=== PATIENT | male | born 1985 | race Hispanic/Latino ===

== ENCOUNTER 2019-07-09 08:43 | Emergency (ER) | payer SELFPAY ==
[~2019-07-09] VITALS: Ht 180.3 cm; Wt 102.1 kg
[2019-07-09] MEDS ORDERED: ONDANSETRON HCL INJ 2MG/ML 2ML 2 MG/ML VIAL IV STA (08:54)
[2019-07-09] MEDS ORDERED: SODIUM CHLORIDE 0.9% 1000ML 1,000 ML IV STA ×2 (08:54)
[2019-07-09] MEDS ORDERED: MORPHINE SULFATE INJ 4 MG/ML INJ 1ML IV STA (08:54)
[2019-07-09 09:14] LABS: BASOPHILS % 0.1 % (0.0-1.0); EOSINOPHILS # (AUTO) 0.1 (0.0-0.4); EOSINOPHILS % 1.5 % (0.0-6.0); HEMATOCRIT 42.3 % (38.2-49.6); LYMPHOCYTES # (AUTO) 0.7 (1.0-3.2); LYMPHOCYTES % 9.3 % (18.0-39.1); MEAN CORPUSCULAR HEMOGLOBIN 28.6 pg (28-32); MEAN CORPUSCULAR HGB CONC 33.1 g/dL (31-35); MEAN CORPUSCULAR VOLUME 86.5 fL (81-99); MONOCYTES # (AUTO) 0.4 (0.2-0.8); MONOCYTES % 5.8 % (4.4-11.3); NEUTROPHILS # (AUTO) 6.1 (2.1-6.9); NEUTROPHILS % 82.8 % (38.7-80.0); PLATELET COUNT 220 x10e3/uL (140-360); RED BLOOD COUNT 4.89 x10e6/uL (4.3-5.7); RED CELL DISTRIBUTION WIDTH 13.5 % (11.7-14.4)
[2019-07-09 09:32] LABS: ALANINE AMINOTRANSFERASE 23 IU/L (0-55); ALBUMIN 3.2 g/dL (3.5-5.0); ALBUMIN/GLOBULIN RATIO 1.1 (0.8-2.0); ALKALINE PHOSPHATASE 62 IU/L (40-150); ANION GAP 9.5 mmol/L (8-16); BLOOD UREA NITROGEN 10 mg/dL (7-26); BUN/CREATININE RATIO 12 (6-25); CALCIUM 8.3 mg/dL (8.4-10.2); CARBON DIOXIDE 28 mmol/L (22-29); CHLORIDE 106 mmol/L (98-107); CREATININE, SERUM 0.81 mg/dL (0.72-1.25); EST GLOMERULAR FILTRATION RATE > 60 ML/MIN (60-); GLUCOSE 107 mg/dL (74-118); LIPASE 27 U/L (8-78); POTASSIUM 3.5 mmol/L (3.5-5.1); SODIUM 140 mmol/L (136-145)
== END 2019-07-09 11:01 | disposition home or self-care (01) ==
LOC: ER 08:43
DX: R11.2 Nausea with vomiting, unspecified (principal); R19.7 Diarrhea, unspecified; K50.90 Crohn's disease, unspecified, without complications
CPT/HCPCS: 36415; 80053; 83690; 85025; 99284; J2270; J2405; J7030

== ENCOUNTER 2019-11-04 19:26 | Emergency (ER) | payer OTHER ==
[~2019-11-04] VITALS: Ht 180.3 cm; Wt 102.1 kg
[2019-11-04 20:18] LABS: BASOPHILS % 0.5 % (0.0-1.0); EOSINOPHILS # (AUTO) 0.5 (0.0-0.4); EOSINOPHILS % 6.4 % (0.0-6.0); HEMATOCRIT 41.5 % (38.2-49.6); HEMOGLOBIN 13.6 g/dL (14.0-18.0); LYMPHOCYTES # (AUTO) 2.1 (1.0-3.2); LYMPHOCYTES % 28.4 % (18.0-39.1); MEAN CORPUSCULAR HEMOGLOBIN 28.9 pg (28-32); MEAN CORPUSCULAR HGB CONC 32.8 g/dL (31-35); MEAN CORPUSCULAR VOLUME 88.1 fL (81-99); MONOCYTES # (AUTO) 0.6 (0.2-0.8); MONOCYTES % 8.5 % (4.4-11.3); NEUTROPHILS # (AUTO) 4.1 (2.1-6.9); NEUTROPHILS % 55.8 % (38.7-80.0); PLATELET COUNT 310 x10e3/uL (140-360); RED BLOOD COUNT 4.71 x10e6/uL (4.3-5.7); RED CELL DISTRIBUTION WIDTH 14.1 % (11.7-14.4)
[2019-11-04 20:38] LABS: ALANINE AMINOTRANSFERASE 18 IU/L (0-55); ALBUMIN 3.8 g/dL (3.5-5.0); ALBUMIN/GLOBULIN RATIO 1.2 (0.8-2.0); ALKALINE PHOSPHATASE 68 IU/L (40-150); AMYLASE 24 U/L (25-125); ANION GAP 9.3 mmol/L (8-16); BLOOD UREA NITROGEN 16 mg/dL (7-26); BUN/CREATININE RATIO 13 (6-25); CALCIUM 9.2 mg/dL (8.4-10.2); CARBON DIOXIDE 30 mmol/L (22-29); CHLORIDE 105 mmol/L (98-107); CREATININE, SERUM 1.24 mg/dL (0.72-1.25); EST GLOMERULAR FILTRATION RATE > 60 ML/MIN (60-); GLUCOSE 83 mg/dL (74-118); LIPASE 24 U/L (8-78); POTASSIUM 4.3 mmol/L (3.5-5.1); SODIUM 140 mmol/L (136-145)
== END 2019-11-04 22:24 | disposition home or self-care (01) ==
LOC: ER 19:26
DX: R10.13 Epigastric pain (principal); K29.20 Alcoholic gastritis without bleeding
CPT/HCPCS: 36415; 80053; 82150; 83690; 85025; 99283

== ENCOUNTER 2019-12-14 17:42 | Emergency (ER) | payer OTHER ==
[~2019-12-14] VITALS: Ht 180.3 cm; Wt 102.1 kg
--- OUTSIDE RECORDS SUMMARY | 2019-12-14 17:45 | XMS REPORT ---
Author Author [facility] Address Unknown Phone Unavailable Care Team Providers Care Quarter Inspector Name Role Phone NO, PCP PP Unavailable Payers Payer Name Policy Type Policy Number Effective Date Expiration Date Miscellaneous Hmo [id number] 2019 00:00:00 Problems This patient has no known problems. Allergies, Adverse Reactions, Alerts This patient has no known allergies or adverse reactions. Medications This patient has no known medications. Encounters Start Date/Time End Date/Time Encounter Type Admission Type Attending Clinicians Care Facility Care Department Encounter ID 2019-11-04 19:26:00 2019-11-04 22:24:00 Departed Emergency Room [facility] [id number] 2019-07-09 08:43:00 2019-07-09 11:01:00 Departed Emergency Room [facility] [id number] Results Test Description Test Time Test Comments Text Results Atomic Results Result Comments Sodium Level 2019-11-04 20:43:00 Sodium Level (test cfli=2292-1) 140 136-145 Potassium Hfalc2413-51-01 20:43:00* Test Item Value Reference Range Comments Potassium Level (test mfda=0894-0) 4.3 3.5-5.1 Chloride Zzjqy7987-80-44 20:43:00* Test Item Value Reference Range Comments Chloride Level (test pyde=3036-2) 105 98-107 Carbon Dioxide Dgiow1056-67-16 20:43:00* Test Item Value Reference Range Comments Carbon Dioxide Level (test txvo=7266-9) 30 22-29 Anion Jvs9666-86-05 20:43:00* Test Item Value Reference Range Comments Anion Gap (test qrcp=96207-9) 9.3 8-16 Blood Urea Sddujhxu5168-18-24 20:43:00* Test Item Value Reference Range Comments Blood Urea Nitrogen (test gvkn=7216-3) 16 7-26 Prvdsguwdq2408-75-32 20:43:00* Test Item Value Reference Range Comments Creatinine (test xrzx=9039-7) 1.24 0.72-1.25 BUN/Creatinine Xzmik4095-54-05 20:43:00* Test Item Value Reference Range Comments BUN/Creatinine Ratio (test zwfy=7518-9) 13 6-25 Estimat Glomerular Filtration Ndqv0559-85-55 20:43:00* Test Item Value Reference Range Comments Estimat Glomerular Filtration Rate (test ywio=817037180) > 60 >60 Ranges were taken from the National Kidney Disease Education Program and the [facility] Kidney Foundation literature.Reference ranges:60 or greater: Nyeavg71-11 ( for 3 consecutive months): Chronic kidney disease 15 or less: Kidney failure Glucose Zcnwi1610-19-46 20:43:00* Test Item Value Reference Range Comments Glucose Level (test cxev=AKM3572) 83 74-118 Calcium Yjaww5664-53-29 20:43:00* Test Item Value Reference Range Comments Calcium Level (test nvmn=54617-4) 9.2 8.4-10.2 Total Deqjrspyr4580-52-91 20:43:00* Test Item Value Reference Range Comments Total Bilirubin (test bfiv=2751-8) 0.2 0.2-1.2 Aspartate Amino Transf (AST/SGOT)2019-11-04 20:43:00* Test Item Value Reference Range Comments Aspartate Amino Transf (AST/SGOT) (test code=Aspartate Amino Transf (AST/SGOT)) 19 5-34 Alanine Aminotransferase (ALT/SGPT)2019-11-04 20:43:00* Test Item Value Reference Range Comments Alanine Aminotransferase (ALT/SGPT) (test xamm=5769-5) 18 0-55 Total Qzbbehv8076-00-38 20:43:00* Test Item Value Reference Range Comments Total Protein (test bphp=7811-1) 7.1 6.5-8.1 Yocnusl2175-90-44 20:43:00* Test Item Value Reference Range Comments Albumin (test hgro=1737-5) 3.8 3.5-5.0 Oqskuwkx9990-03-91 20:43:00* Test Item Value Reference Range Comments Globulin (test jfkc=66415-5) 3.3 2.3-3.5 Albumin/Globulin Bbgue6910-11-52 20:43:00* Test Item Value Reference Range Comments Albumin/Globulin Ratio (test btru=6172-4) 1.2 0.8-2.0 Alkaline Fhdzmlutavt8507-86-92 20:43:00* Test Item Value Reference Range Comments Alkaline Phosphatase (test opga=3432-7) 68 40-150 Amylase Hbobo4065-92-81 20:43:00* Test Item Value Reference Range Comments Amylase Level (test veij=1946-4) 24 25-125 Ncgpwg4896-06-81 20:43:00* Test Item Value Reference Range Comments Lipase (test kvey=0901-8) 24 8-78 White Blood Duazg1848-21-37 20:21:00* Test Item Value Reference Range Comments White Blood Count (test psih=5324-2) 7.29 4.8-10.8 Red Blood Wrqkv8345-05-47 20:21:00* Test Item Value Reference Range Comments Red Blood Count (test luxn=991-5) 4.71 4.3-5.7 Xpllktjrzm4440-07-41 20:21:00* Test Item Value Reference Range Comments Hemoglobin (test cpzb=72276-9) 13.6 14.0-18.0 Trjqlgwxcx8254-54-62 20:21:00* Test Item Value Reference Range Comments Hematocrit (test gdcc=6175-9) 41.5 38.2-49.6 Mean Corpuscular Wuxmgo9904-21-15 20:21:00* Test Item Value Reference Range Comments Mean Corpuscular Volume (test wvlc=285-1) 88.1 81-99 Mean Corpuscular Eithquzplf6212-63-22 20:21:00* Test Item Value Reference Range Comments Mean Corpuscular Hemoglobin (test zami=118-4) 28.9 28-32 Mean Corpuscular Hemoglobin Gedxhnh9806-68-67 20:21:00* Test Item Value Reference Range Comments Mean Corpuscular Hemoglobin Concent (test vrzr=594-6) 32.8 31-35 Red Cell Distribution Erolr2702-13-62 20:21:00* Test Item Value Reference Range Comments Red Cell Distribution Width (test wjxo=35863-4) 14.1 11.7-14.4 Platelet Mxewi5834-17-00 20:21:00* Test Item Value Reference Range Comments Platelet Count (test gpih=503-7) 310 140-360 Neutrophils (%) (Auto)2019-11-04 20:21:00* Test Item Value Reference Range Comments Neutrophils (%) (Auto) (test gpix=66523-8) 55.8 38.7-80.0 Lymphocytes (%) (Auto)2019-11-04 20:21:00* Test Item Value Reference Range Comments Lymphocytes (%) (Auto) (test blau=321-3) 28.4 18.0-39.1 Monocytes (%) (Auto)2019-11-04 20:21:00* Test Item Value Reference Range Comments Monocytes (%) (Auto) (test updq=0516-4) 8.5 4.4-11.3 Eosinophils (%) (Auto)2019-11-04 20:21:00* Test Item Value Reference Range Comments Eosinophils (%) (Auto) (test fwcx=055-2) 6.4 0.0-6.0 Basophils (%) (Auto)2019-11-04 20:21:00* Test Item Value Reference Range Comments Basophils (%) (Auto) (test vmdt=724-9) 0.5 0.0-1.0 IM GRANULOCYTES %2019-11-04 20:21:00* Test Item Value Reference Range Comments IM GRANULOCYTES % (test code=IM GRANULOCYTES %) 0.4 0.0-1.0 Neutrophils # (Auto)2019-11-04 20:21:00* Test Item Value Reference Range Comments Neutrophils # (Auto) (test muyu=484-5) 4.1 2.1-6.9 Lymphocytes # (Auto)2019-11-04 20:21:00* Test Item Value Reference Range Comments Lymphocytes # (Auto) (test evix=83095-0) 2.1 1.0-3.2 Monocytes # (Auto)2019-11-04 20:21:00* Test Item Value Reference Range Comments Monocytes # (Auto) (test fkga=892-2) 0.6 0.2-0.8 Eosinophils # (Auto)2019-11-04 20:21:00* Test Item Value Reference Range Comments Eosinophils # (Auto) (test zsdu=541-0) 0.5 0.0-0.4 Basophils # (Auto)2019-11-04 20:21:00* Test Item Value Reference Range Comments Basophils # (Auto) (test thrj=543-2) 0.0 0.0-0.1 Absolute Immature Granulocyte (dzky8950-59-31 20:21:00* Test Item Value Reference Range Comments Absolute Immature Granulocyte (auto (test code=Absolute Immature Granulocyte (auto) 0.03 0-0.1
[2019-12-14] MEDS ORDERED: IBUPROFEN 400 MG TAB PO ONE (18:00)
[2019-12-14] MEDS ORDERED: HYDROCODONE/CHLORPHENIRAMINE 5 ML LIQCR PO PRN (18:00)
[2019-12-14 18:31] LABS: STREPTOCOCCUS GRP A ANTIGEN NEGATIVE (NEGATIVE)
[2019-12-14 18:44] LABS: INFLUENZAE A&B ANTIGEN (RAPID) NEGATIVE (NEGATIVE)
[2019-12-14 19:20] VITALS: BP 109/84
--- NOTE | 2019-12-14 19:44 | Diagnostic Imaging Report ---
EXAMINATION: CHEST SINGLE (PORTABLE) INDICATION: Cough. COMPARISON: None FINDINGS: TUBES and LINES: None. LUNGS: Lungs are moderately inflated. Mild bronchial wall thickening. Minimal patchy bibasilar opacities, likely atelectasis. No evidence of lobar pneumonia or pulmonary edema. PLEURA: No pleural effusion or pneumothorax. HEART AND MEDIASTINUM: The cardiomediastinal silhouette is unremarkable. BONES AND SOFT TISSUES: No acute osseous lesion. Soft tissues are unremarkable. UPPER ABDOMEN: No free air under the diaphragm. IMPRESSION: No evidence of lobar pneumonia. Mild bronchial wall thickening, which may represent bronchitis in the setting of cough. Signed by: Dr. Andra Mcadams MD on 12/14/2019 7:40 PM
== END 2019-12-14 19:27 | disposition home or self-care (01) ==
LOC: ER 17:42
DX: R05 Cough (principal); J20.9 Acute bronchitis, unspecified; Z87.19 Personal history of other diseases of the digestive system
CPT/HCPCS: 71045; 83518; 87400; 99283

== ENCOUNTER 2020-03-05 00:26 | Emergency (ER) | payer OTHER ==
--- NOTE | 2020-03-05 01:39 | NUR ---
REQUEST FOR MEDSCREEN WITHDRAWN AFTER PATIENT INFORMED THAT HIS SPOUSE AND 2 KIDS COULD NOT SIT IN THE WAITING ROOM.
== END 2020-03-05 01:41 | disposition short-term general hospital (02) ==
LOC: ER 01:34
DX: R10.9 Unspecified abdominal pain (principal)